=== PATIENT | female | born 1995 | race Caucasian/White ===

== ENCOUNTER → 2024-07-25 13:33 | Outpatient (BNVA) | payer OTHER, SELFPAY | PROVIDERS: PCP Internal Medicine; Visit Provider Nurse Practitioner Family ==

== ENCOUNTER 2025-05-29 14:21 | Outpatient (AMB) | payer OTHER, SELFPAY ==
--- NOTE | 2025-05-29 14:50 | A.OFFVIS_ITS ---
Intake Visit Reasons: 7M Rett Accompanied by: Family/Other Allergies penicillin V Allergy (Mild, Verified 05/29/25 14:55) bloody stools Medication List - Last Reconciled 05/29/25 by Dorina Lopez CNP [bed liners reusable As directed] clonidine HCl 0.1 mg PO BEDTIME 90 days [diapers juvenile Use 4 diapers per day as needed] fluoxetine 10 mg PO DAILY 90 days folic acid 1 mg PO DAILY 90 days hydrocortisone 2.5% (Procto-Med HC) 1 appl topical BID levetiracetam 1,000 mg PO BID lorazepam (Ativan) 0.5 mg PO BEDTIME PRN 30 days melatonin 5 mg PO BEDTIME PRN 90 days miscellaneous medical supply 1 ea miscellaneous DAILY ondansetron HCl 4 mg PO TID 30 days pyridoxine (vitamin B6) 100 mg PO DAILY sennosides (senna) 17.2 mg (2 x 8.6 mg) PO BEDTIME 90 days simethicone 180 mg PO TIDWMEAL PRN 30 days terazosin 1 mg PO BEDTIME 90 days topiramate 50 mg PO DIRECTED 90 days [wipes Use 8 wipes per day as needed] HPI Comments Details: She was doing okay. No recent seizures. In the past, she would have small seizures 1-2x/months. Still has periods of breath holding and turning blue before she breathes. Gets anxious at times. More agitated during the day and has some behaviors. Prescribed lorazepam as needed by PCP, but has not been using. Sleep varies, up and down, some nights better than others. She has pureed diet. 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 Her primary caregiver is her mother. She requires total care including feeding, bathing, and dressing. She cannot stand or walk. She does not verbalize. It is unclear if she sees. She sometimes reaches for and grabs things. Had seizure in 11/2019 and 2 seizures in 10/2019 lasting 40 seconds, seizure in 04/2019, seizure in 12/2018 with gen clenching and flexion tonically for about 1 minute. Partial seizures for a few seconds where she does not respond and stares. [facility] Medical History (Updated 05/27/25 @ 14:47 by Du Schwab MA) Seizure disorder Rett syndrome Incomplete bladder emptying COVID-19 Encounter for Medicare annual wellness exam Menstrual cycle related skin disorder Vaginal irritation Renal calculi Fever Abdominal pain Diarrhea Tachycardia Cervical cancer screening Adult general medical exam Screening for diabetes mellitus Screening for hyperlipidemia Bowel incontinence Bladder incontinence Surgical History (Updated 05/03/25 @ 11:51 by Virginie Llanes) No pertinent past surgical history Family History (System 05/03/25 @ 11:51 by Virginie Llanes) Father Hypertension Mother No problems noted. Maternal Grandfather Colon cancer Maternal Grandmother Cancer Paternal Grandfather No problems noted. Social History (System 05/03/25 @ 11:51 by Virginie Llanes) Household Members: Family and Caregiver Household Members Other:: Mom is caregiver Housing: Apartment Alcohol intake: never Patient Tobacco Use Status: Never used Tobacco e-Cigarette/Vaping Use: Never Used Second Hand Smoke Exposure: No service: No Current occupational status: disabled Cognitive needs: No Hearing needs: No Vision needs: No Female Reproductive History Menstrual Age of Menarche: 15 Review of Systems Musc Reports as per HPI Neuro Reports as per HPI Psych Reports as per HPI Physical Exam Const Other: General Appearance:?Alert, no acute distress. In wheelchair with legs extended, but will allow them to relax. Repetitive leg clapping, swinging up and down in extended position, and finger rubbing movements.?Can get agitated, yelling and groaning, and flailing arms. Does not verbalize or follow commands. Repetitive leg clapping, swinging up and down in extended position, and finger rubbing movements. Heart:? S1, S2 normal, no murmurs. Lungs:? clear anteriorly and posteriorly. Extremities:? no edema. Psych:? alert, limited cognitive function, poorly cooperative Neuro Other: Alert, no acute distress. In wheelchair with legs extended, but will allow them to relax. Repetitive leg clapping, swinging up and down in extended position, and finger rubbing movements.?Can get agitated, yelling and groaning, and flailing arms. Does not verbalize or follow commands. Repetitive leg clapping, swinging up and down in extended position, and finger rubbing movements. Does not maintain eye contact. Assessment & Plan Assessment & Plan (1) Rett syndrome: Code(s): F84.2 - Rett's syndrome Category: Medical Plan: Continue topiramate 50mg 1 tablet in the morning and 2 tablets at bedtime Continue levetiracetam 1000mg 1 tablet twice a day (2) Epilepsy: Code(s): G40.909 - Epilepsy, unspecified, not intractable, without status epilepticus Category: Medical Qualifiers: Epilepsy type: other generalized Intractability: not intractable Status epilepticus: without status epilepticus Qualified Code(s): G40.409 - Other generalized epilepsy and epileptic syndromes, not intractable, without status epilepticus Plan: . Coding Level of Care Code Est Pt Level 3 (99851) Diagnoses Rett syndrome F84.2 Other generalized epilepsy, not intractable, without status epilepticus G40.409 Epilepsy type: other generalized Intractability: not intractable Status epilepticus: without status epilepticus
== END 2025-05-29 15:01 | disposition home or self-care (01) ==
LOC: HO.HSM 14:21
PROVIDERS: PCP Internal Medicine; Referring Provider Internal Medicine; Visit Provider Registered Nurse
DX: F84.2 Rett's syndrome (principal); G40.409 Other generalized epilepsy and epileptic syndromes, not intractable, without status epilepticus
CPT/HCPCS: 99213

== ENCOUNTER → 2025-05-29 14:21 | Outpatient (BNVA) | payer OTHER, SELFPAY | PROVIDERS: PCP Internal Medicine; Referring Provider Internal Medicine; Visit Provider Registered Nurse | DX: F84.2 Rett's syndrome (principal); G40.409 Other generalized epilepsy and epileptic syndromes, not intractable, without status epilepticus; Z79.899 Other long term (current) drug therapy | CPT/HCPCS: 99212 ==

== ENCOUNTER 2025-07-04 11:57 | Outpatient (REF) | payer OTHER, SELFPAY ==
[2025-07-04 12:17] LABS: MANUAL DIFF FLAG NO
[2025-07-04 12:52] LABS: Hematocrit 42.1 % (37.0-47.0); Hemoglobin 13.8 g/dl (12.0-16.0); Imm Gran Abs Auto 0.01 X10*3/uL (0.00-0.03); Imm Gran Pct Auto 0.2 % (0.0-0.4); Lymphocytes Absolute Auto 1.6 X10*3/uL (1.2-4.9); Mean Corpuscular HGB Conc 32.8 g/dl (31.0-35.0); Mean Corpuscular Hemoglobin 27.1 pg (27.0-33.0); Mean Corpuscular Volume 82.7 fL (80.0-98.0); NRBC Abs Auto 0.000 X10*3/uL (0.0-0.012); NRBC Pct Auto 0.0 /100WBC (0.0-0.2); Platelet Count 244 X10*3/uL (160-400); Red Blood Count 5.09 X10*6/uL (4.20-5.50); White Blood Count 4.7 X10*3/uL (4.8-10.8)
[2025-07-04 13:31] LABS: Alanine Aminotransferase 27 U/L (0-31); Albumin Level 4.9 g/dL (3.5-5.0); Alkaline Phosphatase 58 U/L (39-117); Anion Gap 13 (12-20); Aspartate Amino Transferase 24 U/L (5-31); Blood Urea Nitrogen 13 mg/dL (9-16); Calcium 9.4 mg/dL (8.4-10.2); Carbon Dioxide 22 mmol/L (22-29); Chloride 110 mmol/L (96-108); Estimated Glomerular Filt Rate > 60; Iron 71 mcg/dL (30-160); Percent Iron Saturation 21 % (15-50); Potassium 3.9 mmol/L (3.3-5.1); Sodium 141 mmol/L (135-145); Total Iron Binding Capacity 345 mcg/dL (228-428); Total Protein 7.5 g/dL (6.5-8.0); Unsaturated Iron Binding 274 ug/dL
[2025-07-04 14:54] LABS: Folate > 20.0 ng/mL (> or = 4.0); Vitamin B12 642 pg/mL (200-900)
== END 2025-07-04 11:58 | disposition home or self-care (01) ==
LOC: HO.LAB 11:57
PROVIDERS: PCP Internal Medicine; Visit Provider Internal Medicine
DX: G40.409 Other generalized epilepsy and epileptic syndromes, not intractable, without status epilepticus (principal); D64.9 Anemia, unspecified; E55.9 Vitamin D deficiency, unspecified; E53.8 Deficiency of other specified B group vitamins
CPT/HCPCS: 36415; 80053; 82306; 82607; 82746; 83540; 85025

== ENCOUNTER 2025-07-17 13:30 | Outpatient (AMB) | payer OTHER, SELFPAY ==
[2025-07-17 13:37] VITALS: BP 112/74; PULSE 99; RESP 18; O2SAT 97
--- NOTE | 2025-07-17 13:37 | MHC.PC.OV ---
Vital Signs 07/17/25 13:37 Height 5 ft 3 in BP 112/74 Blood Pressure Location Lt brachial Position Sitting Respiration 18 Pulse 99 Pulse Source Pulse Oximeter Temp Source Temporal Artery Scan Pulse Oximetry (%) 97 Oxygen Delivery Method Room Air Intake Visit Reasons: retts Bi Data Architect Required: No Accompanied by: Self / Same As Patient Allergies penicillin V Allergy (Mild, Verified 07/17/25 13:59) bloody stools Medication List - Last Reconciled 07/17/25 by Katie Lennon MD [bed liners reusable As directed] clonidine HCl 0.1 mg PO BEDTIME 90 days [diapers juvenile Use 4 diapers per day as needed] fluoxetine 10 mg PO DAILY 90 days folic acid 1 mg PO DAILY 90 days hydrocortisone 2.5% (Procto-Med HC) 1 appl topical BID levetiracetam 1,000 mg PO BID lorazepam (Ativan) 0.5 mg PO BEDTIME PRN 30 days melatonin 5 mg PO BEDTIME PRN 90 days miscellaneous medical supply 1 ea miscellaneous DAILY ondansetron HCl 4 mg PO TID 30 days pyridoxine (vitamin B6) 100 mg PO DAILY sennosides (senna) 17.2 mg (2 x 8.6 mg) PO BEDTIME 90 days sennosides (senna) 17.2 mg PO BEDTIME simethicone 180 mg PO TID PRN terazosin 1 mg PO BEDTIME 90 days topiramate 50 mg PO DIRECTED 90 days [wipes Use 8 wipes per day as needed] Tobacco use date assessed: 07/17/25 Dental Screening Dental Screen Date: 07/17/25 Did you have a dental visit in the last 12 months?: No Did you have a dental problem in the last 6 months where you did not have access to dental care?: No Was dental information given to patient?: No HPI HPI Comments History of Present Illness Details The patient is a 29-year-old female presenting for a follow-up on her seizure disorder and Rett. Due to Rett she is in a wheelchair and use ankle braces. She is nonverbal and is accompanied by cashier wrapper which is her mother. The patient has a history of seizures for which she consulted neurology in May. Her laboratory results were generally normal, with a slight decrease in white blood cell count at 4.7, just below the normal range of 4.8. She is currently on medications including clonidine, fluoxetine, folic acid, levetiracetam, and lorazepam, which she uses infrequently for anxiety. Also has occasional constipation and urinary retention. The patient reports irregular menstruation, occurring every two months with variability in cycle length. She denies any significant changes in her menstrual symptoms. She has an allergy to penicillin, which has previously caused hematochezia. [facility] Medical History (Updated 07/17/25 @ 14:18 by Katie Lennon MD) Seizure disorder Rett syndrome Incomplete bladder emptying COVID-19 Encounter for Medicare annual wellness exam Menstrual cycle related skin disorder Vaginal irritation Renal calculi Fever Abdominal pain Diarrhea Tachycardia Cervical cancer screening Adult general medical exam Screening for diabetes mellitus Screening for hyperlipidemia Bowel incontinence Bladder incontinence Surgical History No pertinent past surgical history Family History Father Hypertension Mother No problems noted. Maternal Grandfather Colon cancer Maternal Grandmother Cancer Paternal Grandfather No problems noted. Social History Household Members: Family and Caregiver Household Members Other:: Mom is caregiver Housing: Apartment Alcohol intake: never Patient Tobacco Use Status: Never used Tobacco e-Cigarette/Vaping Use: Never Used Second Hand Smoke Exposure: No service: No Current occupational status: disabled Cognitive needs: No Hearing needs: No Vision needs: No Female Reproductive History Menstrual Age of Menarche: 15 Questionnaire PHQ-9 Over the last 2 weeks, how often have you been bothered by any of the following problems? 1. Little interest or pleasure in doing things: nearly every day 2. Feeling down, depressed, or hopeless: not at all 3. Trouble falling or staying asleep, or sleeping too much: not at all 4. Feeling tired or having little energy: not at all 5. Poor appetite or overeating: not at all 6. Feeling bad about yourself - or that you are a failure or have let yourself or your family down: not at all 7. Trouble concentrating on things, such as reading the newspaper or watching television: not at all 8. Moving or speaking so slowly that other people could have noticed. Or the opposite - being so fidgety or restless that you have been moving around a lot more than usual: not at all 9. Thoughts that you would be better off or of hurting yourself in some way: not at all Total score: 3 Depression Screening Interpretation: Negative Depression Screening Done: Yes 57247 - PHQ-9 Billing: Yes Source: Developed by Drs. Rafa Solorzano, Eileen Truong, Nate Garner and colleagues, with an educational lorena from [employer]. Thrive Questionnaire Date Thrive assessed: 11/23/22 I am a: Parent/Caregiver What is your living situation today?: I have a steady place to live Within the past 12 months, did the food you bought not last and you didn't have the money to get more?: Never true Within the past 12 months, did you worry whether your food would run out before you got money to buy more?: Never true Do you have trouble paying for medicines?: No Do you have trouble getting transportation to medical appointments?: No Do you have trouble paying your heating and electricity bill?: No Do you have trouble taking care of your child, family member or friend?: No Do you have trouble with day-to-day activities such as bathing, preparing meals, shopping, managing finances, etc.?: No Are you currently unemployed and looking for a job?: No Are you interested in more education?: No Please select the resources that you would like help with: None Currently or been in a relationship where the following occur: No concerns reported THRIVE Score: 0 AUDIT C Alcohol Use Questionnaire (AUDIT-C) 1. How often do you have a drink containing alcohol?: Never Total Score: 0 Score Reviewed/Action Taken: No BUCK-7 AMB Questionnaire BUCK-7 Date BUCK - 7 assessed: 01/10/24 Feeling nervous, anxious, or on edge: 0 = Not at all Not being able to stop or control worryin = Not at all Worrying too much about different things: 0 = Not at all Trouble relaxin = Not at all Being so restless that it is hard to sit still: 0 = Not at all Becoming easily annoyed or irritable: 0 = Not at all Feeling afraid as if something awful might happen: 0 = Not at all Total BUCK-7 score (0-4 normal; 5-9 mild; 10-14 moderate; 15-21 severe): 0 Source: Developed by Drs. Rafa Solorzano, Eileen Truong, Nate Garner and colleagues, with an educational lorena from [employer]. BUCK-7 Assessment Billing BUCK-7 Assessment Tool: BUCK-7 Assessment 27925 Review of Systems Const All systems reviewed & are unremarkable except as noted in HPI and below Card Denies chest pain at rest, Denies chest pain with activity, Denies edema, Denies irregular heart rhythm, Denies claudication, Denies dyspnea, Denies dyspnea on exertion, Denies orthopnea, Denies paroxysmal nocturnal dyspnea and Denies slow heart rate Resp Denies cough, Denies dyspnea and Denies dyspnea on exertion GI Denies abdominal pain, Denies change in bowel habits, Denies excessive flatus, Denies nausea and Denies vomiting Musc Reports abnormal gait and Reports deformity Neuro Reports abnormal gait Physical exam (Primary Care) Vital Signs: Last Vital Signs Pulse 99 07/17/25 13:37 Resp 18 07/17/25 13:37 BP 112/74 07/17/25 13:37 Pulse Ox 97 07/17/25 13:37 Oxygen Delivery Method Room Air 07/17/25 13:37 Tobacco/Smoking Status: Tobacco use Status Tobacco use date assessed 07/17/25 07/17/25 13:47 Patient Tobacco Use Status Never used Tobacco 07/17/25 13:37 e-Cigarette/Vaping Use Never Used 07/17/25 13:37 PHQ-9: PHQ-9 Score PHQ-9: Total score 3 07/17/25 13:47 Depression Screening Interpretation: Negative Thrive Assessment: Date of Thrive Assessment Date Thrive assessed 11/23/22 07/17/25 13:37 Currently or been in a relationship where the following occur: No concerns reported Const Limitations: wheelchair Resp Effort & Inspection: normal respiratory effort Auscultation: clear to auscultation bilaterally Cardio Jugular venous distension: no JVD Rate: regular rate Rhythm: regular rhythm Heart sounds: S1 normal heart sound present and S2 normal heart sound present Extrem General: Yes full ROM Coding Level of Care Code Est Pt Level 4 (64126) Complex EM visit Add On G2211 Diagnoses Other generalized epilepsy, not intractable, without status epilepticus G40.409 Epilepsy type: other generalized Intractability: not intractable Status epilepticus: without status epilepticus Rett syndrome F84.2 Urinary retention R33.9 Chronic idiopathic constipation K59.04 Anxiety F41.9 Additional Codes PHQ-9 - 64323 - PHQ-9 Billing: Yes ([id number]) BUCK-7 Assessment Billing - BUCK-7 Assessment Tool: BUCK-7 Assessment 07415 ([id number]) Time Spent (min) 21 Assessment & Plan Assessment & Plan (1) Epilepsy: Code(s): G40.909 - Epilepsy, unspecified, not intractable, without status epilepticus Category: Medical Qualifiers: Epilepsy type: other generalized Intractability: not intractable Status epilepticus: without status epilepticus Qualified Code(s): G40.409 - Other generalized epilepsy and epileptic syndromes, not intractable, without status epilepticus (2) Rett syndrome: Code(s): F84.2 - Rett's syndrome Category: Medical (3) Urinary retention: Code(s): R33.9 - Retention of urine, unspecified Category: Medical (4) Chronic idiopathic constipation: Code(s): K59.04 - Chronic idiopathic constipation Category: Medical (5) Anxiety: Code(s): F41.9 - Anxiety disorder, unspecified Category: Medical Plan Plan Patient was informed and verbally consented to the use of an ambient scribe for clinic note documentation during this visit. 1. Epilepsy, unspecified, not intractable, without status epilepticus G40.909 HCC 79 The patient will continue her current medication regimen, including levetiracetam, with follow-up appointments as needed. No additional laboratory tests are planned unless clinically indicated. 2. Chronic idiopathic constipation K59.04 Continue senna as needed. 3. Retention of urine, unspecified R33.9 Continue terazosin as needed. Follow-up with Urology. Cath urine if needed. 4. Rett's syndrome F84.2 Follow-up with neurology. Use ankle braces as needed and wheelchair as needed. Medications: Changed From levetiracetam 1,000 mg PO BID To levetiracetam 1,000 mg PO BID 180 tabs 1RF 90 days Refilled clonidine HCl 0.1 mg PO BEDTIME 90 tabs 1RF 90 days sennosides (senna) 17.2 mg (2 x 8.6 mg) PO BEDTIME 180 caps 1RF constipation 90 days K59.04 - Chronic idiopathic constipation terazosin 1 mg PO BEDTIME 90 caps 3RF 90 days R39.12 - Poor urinary stream lorazepam (Ativan) 0.5 mg PO BEDTIME PRN 20 tabs 0RF anxiety 30 days fluoxetine 10 mg PO DAILY 90 caps 3RF 90 days folic acid 1 mg PO DAILY 90 tabs 1RF 90 days melatonin 5 mg PO BEDTIME PRN 90 tabs 1RF sleep 90 days ondansetron HCl 4 mg PO TID 90 tabs 0RF 30 days simethicone 180 mg PO TID PRN 270 caps 0RF for abdominal pain topiramate 1 tab at am and 2 tabs at pm 50 mg PO DIRECTED 270 tabs 2RF 90 days
== END 2025-07-17 14:15 | disposition home or self-care (01) ==
LOC: HO.HMCH 13:31
PROVIDERS: PCP Internal Medicine; Visit Provider Internal Medicine
DX: G40.409 Other generalized epilepsy and epileptic syndromes, not intractable, without status epilepticus (principal); F84.2 Rett's syndrome; R33.9 Retention of urine, unspecified; K59.04 Chronic idiopathic constipation; F41.9 Anxiety disorder, unspecified

== ENCOUNTER → 2025-07-17 13:30 | Outpatient (BNVA) | payer OTHER, SELFPAY | PROVIDERS: PCP Internal Medicine; Visit Provider Internal Medicine | DX: G40.409 Other generalized epilepsy and epileptic syndromes, not intractable, without status epilepticus (principal); K59.04 Chronic idiopathic constipation; R33.9 Retention of urine, unspecified; F84.2 Rett's syndrome; F41.9 Anxiety disorder, unspecified; R39.12 Poor urinary stream | CPT/HCPCS: 96127; 99212 ==

== ENCOUNTER 2025-07-22 13:06 | Outpatient (AMB) | payer OTHER, SELFPAY ==
--- NOTE | 2025-07-22 13:23 | MHC.OFFVIS ---
Intake Visit Reasons: 7m/PVR Intake Note: Patient is present for 7M/PVR Urology Medication:TERAZOSIN,VITAMIN B6 Antibiotic Allergy:PENICILLIN V Blood Thinner:NONE Last PVR:0ML'S Todays PVR:0ML'S Management Consulting Required: No Management Consulting Name: RAJNI SAABCMAlec Allergies penicillin V Allergy (Mild, Verified 07/22/25 14:12) bloody stools Medication List - Last Reconciled 07/22/25 by MEHDI Watts clonidine HCl 0.1 mg PO BEDTIME 90 days [diapers juvenile Use 4 diapers per day as needed] fluoxetine 10 mg PO DAILY 90 days folic acid 1 mg PO DAILY 90 days hydrocortisone 2.5% (Procto-Med HC) 1 appl topical BID levetiracetam 1,000 mg PO BID 90 days lorazepam (Ativan) 0.5 mg PO BEDTIME PRN 30 days melatonin 5 mg PO BEDTIME PRN 90 days miscellaneous medical supply 1 ea miscellaneous DAILY ondansetron HCl 4 mg PO TID 30 days pyridoxine (vitamin B6) 100 mg PO DAILY sennosides (senna) 17.2 mg (2 x 8.6 mg) PO BEDTIME 90 days sennosides (senna) 17.2 mg PO BEDTIME simethicone 180 mg PO TID PRN terazosin 1 mg PO BEDTIME 90 days topiramate 50 mg PO DIRECTED 90 days [wipes Use 8 wipes per day as needed] HPI Comments Details: Krystin is a 29-year-old /Canadian female patient of Dr. Arias who was accompanied by her family at today's office visit. She has a past medical history of Retts syndrome, epilepsy, chronic idiopathic constipation, hemorrhoids, bowel and bladder incontinence, insomnia, nephrolithiasis, and urinary retention. Patient's parents provide all of today's history as patient is nonverbal. She presents to the office today for follow-up of her history of urinary retention. In discussion with the patients family today they deny patient to have had any bothersome urinary issues or concerns since her last office visit here. They report they have not needed to perform CIC since her last office visit here. She has been able to independently void. Unable to obtain urine for urinalysis today however PVR 0 mL. Previous workup has included a retroperitoneal ultrasound 07/07 noting bilateral kidneys with no calculi, lesions, and or hydronephrosis. The patient was unable to retain urine therefore the bladder was empty. Normal renal ultrasound. Patient's family report feeling low-dose terazosin has been helpful as patient has been having decreased episodes of urinary retention. We did discuss trial of discontining medication however they feel patient is stable and would like to continue with 1 mg of terazosin as prescribed. Patient's baseline urinary and bowel habits are incontinence. All questions were answered. [facility] Medical History Seizure disorder Rett syndrome Incomplete bladder emptying COVID-19 Encounter for Medicare annual wellness exam Menstrual cycle related skin disorder Vaginal irritation Renal calculi Fever Abdominal pain Diarrhea Tachycardia Cervical cancer screening Adult general medical exam Screening for diabetes mellitus Screening for hyperlipidemia Bowel incontinence Bladder incontinence Surgical History No pertinent past surgical history Family History Father Hypertension Mother No problems noted. Maternal Grandfather Colon cancer Maternal Grandmother Cancer Paternal Grandfather No problems noted. Social History Household Members: Family and Caregiver Household Members Other:: Mom is caregiver Housing: Apartment Alcohol intake: never Patient Tobacco Use Status: Never used Tobacco e-Cigarette/Vaping Use: Never Used Second Hand Smoke Exposure: No service: No Current occupational status: disabled Cognitive needs: No Hearing needs: No Vision needs: No Female Reproductive History Menstrual Age of Menarche: 15 Review of Systems Const Unobtainable due to mental condition Physical Exam Const General: cooperative, healthy appearing, comfortable, no acute distress, well developed, alert and well groomed Nutritional Appearance: thin Orientation/consciousness: Other orientation findings (non verbal) Limitations: wheelchair HEENT Head: Yes normal to inspection Neck Neck: Yes normal visual inspection Chest Chest palpation & inspection: normal inspection of the chest Resp Effort & Inspection: normal respiratory effort Cardio Rate: regular rate GI Inspection: Yes normal to inspection External Female Exam: normal external appearance and normal appearance of the urethra Speculum Exam - Vagina: normal appearance of the vagina Skin General skin exam: no rashes or lesions noted Psych Appearance: well kempt Mental Status: other (non verbal) Attitude: cooperative Insight: Limited insight present (Psych) Judgement: Limited judgement present (Psych) Office Procedures Post Void Residual Post Residual Void Post Void Residual (PVR): 0 [id number] Void Residual by ultrasound Assessment & Plan Assessment & Plan (1) Bladder incontinence: Code(s): R32 - Unspecified urinary incontinence Category: Medical (2) Urinary retention: Code(s): R33.9 - Retention of urine, unspecified Category: Medical Plan Unable to obtain urine for urinalysis however PVR 0 mL. Continue terazosin 1 mg at bedtime. Discussed at length potential causes of urinary retention/incomplete bladder emptying. Discussed importance of timed/scheduled voiding. Will continue with surveillance monitoring. All questions were answered. Family currently denies any bothersome urinary issues or concerns. Follow-up in 6 months with provider with PVR Patient Instructions: The patient had an opportunity to ask questions regarding the treatment plan. All questions were answered. Physical exam, labs, and imaging were discussed and reviewed in detail. As well as risks, benefits, and discussion of treatment choices. No major barriers to understanding were identified. The patient expressed understanding and agreement with the above treatment plan. The patient was made aware they should contact our office by phone for worsening of their current condition, the appearance of new symptoms, or with any questions or concerns. Compliance is encouraged with any medications and follow up testing that is ordered. It is a privilege to be allowed the opportunity to participate in? your urological care.? Again, if you have any questions or concerns If you have any questions or concerns please do not hesitate to contact me. The office is [phone]. This note is constructed using voice recognition software. While every effort has been made to ensure accuracy pump rebuilder errors may have been included. Yours sincerely, MEHDI Watts Coding Level of Care Code Est Pt Level 3 (39567) Complex EM visit Add On G2211 Diagnoses Bladder incontinence R32 Urinary retention R33.9 CPT Codes Post Residual Void - PVR CPT Code: 67149-Dyxa Void Residual by ultrasound ([id number])
== END 2025-07-22 14:21 | disposition home or self-care (01) ==
LOC: HO.HUSH 13:07
PROVIDERS: PCP Internal Medicine; Visit Provider Nurse Practitioner Family
DX: R32 Unspecified urinary incontinence (principal); R33.9 Retention of urine, unspecified
CPT/HCPCS: 99213; G2211

== ENCOUNTER → 2025-07-22 13:06 | Outpatient (BNVA) | payer OTHER, SELFPAY | PROVIDERS: PCP Internal Medicine; Visit Provider Nurse Practitioner Family | DX: R33.9 Retention of urine, unspecified (principal); R32 Unspecified urinary incontinence | CPT/HCPCS: 51798; 99212 ==